=== PATIENT | female | born 1950 | race Caucasian/White ===

== ENCOUNTER → 2023-01-28 10:05 | Outpatient (CLI) | payer OTHER, SELFPAY ==
--- NOTE | ~2023-01-28 | DEXA_ITS ---
Bone Density Report Name: WANG SANTIAGO Age: 72 Sex: Female Ethnicity: White Date of : 1950 Indication: postmenopausal; screening for osteoporosis; height loss; hysterectomy; Referring Provider: JOSEPHINE LAMBERT Study: Bone densitometry was performed. Exam Date: January 28, 2023 Accession number: [id number] Bone Density: Region BMD T-score Z-score Classification AP Spine (L1, L2, L3) 0.845 -1.6 0.6 Osteopenia Femoral Neck (Left) 0.653 -1.8 0.2 Osteopenia Total Hip (Left) 0.717 -1.8 -0.2 Osteopenia Femoral Neck (Right) 0.619 -2.1 -0.1 Osteopenia Total Hip (Right) 0.693 -2.0 -0.4 Osteopenia Total Hip Mean 0.705 -1.9 -0.3 Osteopenia World Health Organization criteria for BMD impression classify patients as: Normal (T-score at or above -1.0), Osteopenia (T-score between -1.0 and -2.5), or Osteoporosis (T-score at or below -2.5). 10-year Fracture Risk(1): Major Osteoporotic Fracture 12% Hip Fracture 2.8% Reported Risk Factors: [place] (), Neck BMD=0.619, BMI=23.2 (1) FRAX(R) Version 3.08. Fracture probability calculated for an untreated patient. Fracture probability may be lower if the patient has received treatment. Clinical Information Provided by Patient: Has used the following medications: HRT (i.e. estrogen/hormone therapy) Has the following medical conditions: Hysterectomy Patient maximum height was 62 Menopause Age: 46 Onset of menses at age 13 Number of children 3 Impression: The patient has low bone mass, based on the Right Femoral Neck T-score. The patient has an estimated ten-year risk of hip fracture of 2.8% and an estimated ten-year risk of major fracture of 12%, based on the WHO FRAX algorithm. Discussion: BONE DENSITY IS LOW AT ONE OR MORE SKELETAL SITES. This patient's lowest T-score is low at one or more skeletal sites. It meets the World Health Organization's (WHO) criteria for ?low bone mass? (T-score between -1.0 and -2.5). The patient's 10-year risk of fracture as calculated by FRAX is less than the threshold where pharmacological therapy is recommended by the National Osteoporosis Foundation (NOF). However, all treatment decisions require clinical judgment and consideration of individual patient factors, including patient preferences, comorbidities, previous drug use, risk factors not captured in the FRAX model (e.g., frailty, falls, vitamin D deficiency, increased bone turnover, interval significant decline in bone density) and possible under or overestimation of fracture risk by FRAX. The patient should follow a healthful lifestyle (good nutrition with adequate calcium and vitamin D, and appropriate weight-bearing exercise). Follow-Up: Consider repeating this study in 2 to 3 years to reassess this patient's status, or sooner if there is some new cl
--- NOTE | ~2023-01-28 | MM_ITS ---
EXAMINATION: MM screening norberto BI w raul HISTORY: Screening mammogram TECHNIQUE: Craniocaudal and mediolateral oblique 3-D tomosynthesis images were obtained and synthetic 2-D images were generated. CAD analysis was submitted and interpreted. COMPARISON: No prior mammogram is available for comparison at this institution. BREAST PARENCHYMAL COMPOSITION: There are scattered areas of fibroglandular density. FINDINGS: RIGHT BREAST: There are asymmetries in the middle third of the slightly upper breast on the mediolate ral oblique view. LEFT BREAST: No suspicious mass, calcification, or architectural distortion are identified to suggest malignancy. IMPRESSION: 1. Right breast asymmetries which may represent the patient's baseline however no comparison is curre ntly available. 2. Comparison with prior mammograms is necessary. BI-RADS Category 0: Incomplete: Needs comparison with prior mammograms. Reviewed, dictated and finalized at location A. IMPRESSION: 1. Right breast asymmetries which may represent the patient's baseline however no comparison is currently available. 2. Comparison with prior mammograms is necessary. BI-RADS Category 0: Incomplete: Needs comparison with prior mammograms.
== END ==
PROVIDERS: PCP Obstetrics & Gynecology Gynecology; Visit Provider Obstetrics & Gynecology Gynecology
DX: Z12.31 Encounter for screening mammogram for malignant neoplasm of breast (principal); Z78.0 Asymptomatic menopausal state; R92.8 Other abnormal and inconclusive findings on diagnostic imaging of breast; M85.852 Other specified disorders of bone density and structure, left thigh; M85.851 Other specified disorders of bone density and structure, right thigh
CPT/HCPCS: 77063; 77067; 77080

== ENCOUNTER → 2023-03-11 08:01 | Outpatient (CLI) | payer OTHER, SELFPAY ==
--- NOTE | ~2023-03-11 | MMUS_ITS ---
EXAMINATION: MM diagnostic norberto RT w raul, US breast RT complete HISTORY: Right breast mammographic asymmetries reported on 01/28/2023 screening mammogram TECHNIQUE: Additional 3-D tomosynthesis images of the right breast were performed and synthetic 2-D i mages were generated. CAD analysis was submitted and interpreted. High resolution complete right jesse st ultrasound examination including all 4 quadrants and subareolar area was performed. COMPARISON: 01/28/2023 bilateral screening mammogram FINDINGS: MAMMOGRAPHIC FINDINGS: Scattered benign calcifications are noted. There are questionable small nodular masses. Versus asymme tric fibroglandular stroma. Right breast ultrasound examination was performed. ULTRASOUND: A benign appearing approximately 3 x 5 mm lymph node is noted in the lateral subareolar area. No suspicious mass or shadowing or suspicious vascularity is detected. IMPRESSION: 1. Benign finding 2. Routine annual mammographic screening is recommended BI-RADS Category 2: Benign finding(s). Reviewed, dictated and finalized at location A. IMPRESSION: 1. Benign finding 2. Routine annual mammographic screening is recommended BI-RADS Category 2: Benign finding(s).
== END ==
PROVIDERS: PCP Obstetrics & Gynecology Gynecology; Visit Provider Obstetrics & Gynecology Gynecology
DX: R92.8 Other abnormal and inconclusive findings on diagnostic imaging of breast (principal)
CPT/HCPCS: 76641; 77061; 77065; G0279

== ENCOUNTER 2024-07-17 11:53 | Outpatient (CLI) | payer OTHER, SELFPAY ==
--- NOTE | ~2024-07-17 | MR_ITS ---
EXAMINATION: MR brain/brain stem wo/w con DATE: 07/17/2024 12:38 INDICATION: Cognitive communication deficit. Memory loss. TECHNIQUE: Magnetic resonance imaging (MRI) of the brain and brainstem was performed without and with 10 mL MultiHance intravenous contrast. COMPARISON: None. FINDINGS: There is a 4.3 x 2.9 x 3.7 cm parafalcine enhancing mass primarily on the left in the front oparietal region, consistent with a meningioma. There is adjacent vasogenic edema in the left frontop arietal region. There are scattered areas of nonspecific increased T2-weighted signal intensity in th e cerebral white matter, which is within normal limits for the patient's age. There is no intracrani al hemorrhage or acute ischemic infarct. The ventricles are normal in size. There are likely changes of ocular lens replacement surgeries. The paranasal sinuses are clear. The mastoid air cells are norm al. IMPRESSION: 1. 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 Reviewed, dictated and finalized at location A. L DEALER
== END 2024-07-17 11:54 | disposition home or self-care (01) ==
LOC: MICIMG 11:56
PROVIDERS: PCP Physician Assistant; Visit Provider Physician Assistant
DX: R41.841 Cognitive communication deficit (principal)
CPT/HCPCS: 70553; A9577